=== PATIENT | female | born 1950 | race Caucasian/White ===

== ENCOUNTER 2016-07-06 22:58 | Inpatient (IN) | payer MEDICARE, BC ==
[2016-07-06] MEDS ORDERED: ASPIRIN 81 MG TABLET, CHEWABLE PO ONE (23:07)
--- NOTE | 2016-07-06 23:37 | EKG REPORT ---
SEVERITY:- ABNORMAL ECG - ATRIAL FIBRILLATION, V-RATE 71-[address] DEPRESSION, DIFFUSE LEADS : Confirmed by: Maria Ines Soto 06-Jul-2016 23:36:38
[2016-07-06 23:52] LABS: PARTIAL THROMBOPLASTIN TIME 34.8 SEC (23.5-35.8); PROTHROMBIN TIME 13.6 SEC (11.4-15.4)
[2016-07-06 23:54] LABS: ABSOLUTE EOSINOPHILS # (AUTO) 0.1 10^3/uL (0.0-0.6); ABSOLUTE MONOCYTES (AUTO) 0.6 10^3/uL (0.1-1.4); ABSOLUTE NEUT (AUTO) 4.3 10^3/uL (1.7-8.2); BASOPHILS % (AUTO) 0.7 % (0-2); HEMATOCRIT 42.7 % (36.0-47.0); HEMOGLOBIN 14.2 g/dL (12.0-15.5); HGB HCT DIFFERENCE -0.1; LYMPHOCYTES % (AUTO) 28.5 % (13-45); MEAN CORPUSCULAR HEMOGLOBIN 28.9 pg (27.0-33.4); MEAN CORPUSCULAR HGB CONC 33.1 g/dL (32.0-36.0); MEAN CORPUSCULAR VOLUME 87 fl (80-97); MONOCYTES % (AUTO) 8.3 % (3-13); SEGMENTED NEUTROPHILS % (AUTO) 61.5 % (42-78); WHITE BLOOD COUNT 6.9 10^3/uL (4.0-10.5)
[2016-07-07 00:03] LABS: ALANINE AMINOTRANSFERASE 26 U/L (9-52); ALBUMIN 4.8 g/dL (3.5-5.0); ALKALINE PHOSPHATASE 76 U/L (38-126); ANION GAP 12 (5-19); ASPARTATE AMINO TRANSFERASE 48 U/L (14-36); BILIRUBIN,TOTAL 0.6 mg/dL (0.2-1.3); BLOOD UREA NITROGEN 20 mg/dL (7-20); CALCIUM 10.2 mg/dL (8.4-10.2); CARBON DIOXIDE 28 mmol/L (22-30); CHLORIDE 106 mmol/L (98-107); CREATINE KINASE 178 U/L (30-135); CREATININE RESULT 0.98 mg/dL (0.52-1.25); GLUCOSE 152 mg/dL (75-110); POTASSIUM 3.7 mmol/L (3.6-5.0); TOTAL PROTEIN 7.9 g/dL (6.3-8.2)
[2016-07-07 00:15] LABS: CREATINE KINASE MB 2.15 ng/mL (<4.55)
[2016-07-07 00:16] LABS: TROPONIN I < 0.012 ng/mL
[2016-07-07] MEDS ORDERED: NORMAL SALINE 1000 ML 500 ML IV ONE ×2 (00:30→01:21)
--- NOTE | 2016-07-07 00:33 | ER Document Report ---
ED Cardiac - General Chief Complaint: Palpitations Stated Complaint: FAST HEART RATE Notes: Patient is 66-year-old female that comes emergency department with chief complaint of a sensation of a rapid irregular heartbeat and also of pressure in the center of her chest, this started just before she went to bed several hours before coming to the emergency department. She denies shortness of breath, cough, fever, abdominal pain. She states she was told she had an irregular heartbeat once before but this was resolved and she has never been treated for this. She denies any cardiac history including [place] with stents, she is not on a blood thinner, past medical history of hypothyroidism, GERD, asthma. TRAVEL OUTSIDE OF THE [place] IN LAST 30 DAYS: No - Related Data Allergies/Adverse Reactions: No Known Allergies Allergy (Unverified 07/06/16 23:04) Past Medical History - General Information source: Patient - Social History Smoking Status: Never Smoker Frequency of alcohol use: None Drug Abuse: None Lives with: Family Family History: Reviewed & Not Pertinent Patient has suicidal ideation: No Patient has homicidal ideation: No Pulmonary Medical History: Reports: Hx Asthma Endocrine Medical History: Reports: Hx Hypothyroidism Renal/ Medical History: Denies: Hx Peritoneal Dialysis GI Medical History: Reports: Hx Gastroesophageal Reflux Disease - Immunizations Hx Diphtheria, Pertussis, Tetanus Vaccination: Yes Review of Systems - Review of Systems Constitutional: No symptoms reported EENT: No symptoms reported Cardiovascular: See HPI Respiratory: No symptoms reported Gastrointestinal: No symptoms reported Genitourinary: No symptoms reported Female Genitourinary: No symptoms reported Musculoskeletal: No symptoms reported Skin: No symptoms reported Hematologic/Lymphatic: No symptoms reported Neurological/Psychological: No symptoms reported Physical Exam - Vital signs Vitals: Temp Pulse Resp BP Pulse Ox 98.0 F 124 H 16 133/98 H 94 07/06/16 23:04 07/06/16 23:04 07/06/16 23:04 07/06/16 23:04 07/06/16 23:04 Interpretation: Normal - General General appearance: Appears well In distress: None - HEENT Head: Normocephalic, Atraumatic Eyes: Normal Pupils: PERRL - Respiratory Respiratory status: No respiratory distress Chest status: Nontender Breath sounds: Normal. No: Decreased air movement, Wheezing Chest palpation: Normal - Cardiovascular Rhythm: Irregularly irregular Heart sounds: Normal auscultation Murmur: No - Abdominal Inspection: Normal Distension: No distension Bowel sounds: Normal Tenderness: Nontender. No: Tender, Guarding Organomegaly: No organomegaly - Back Back: Normal. No: Tender - Extremities General upper extremity: Normal inspection, Nontender, Normal strength, Normal temperature General lower extremity: Normal inspection, Nontender, Normal strength, Normal temperature - Neurological Neuro grossly intact: Yes Cognition: Normal Orientation: AAOx4 Rufina Coma Scale Eye Opening: Spontaneous Lang[place]ne Coma Scale Verbal: Oriented Rufina Coma Scale Motor: Obeys Commands Langhorne Coma Scale Total: 15 Speech: Normal Motor strength normal: LUE, RUE, LLE, RLE Sensory: Normal - Psychological Associated symptoms: Normal affect, Normal mood - Skin Skin Temperature: Warm Skin Moisture: Dry Skin Color: Normal Course - Re-evaluation Re-evalutation: On my initial evaluation patient noted to be in atrial fibrillation, however there is not rapid ventricular response at this time, heart rate in the upper 90s and 100s. Patient does not have a history of chronic atrial fibrillation, she has been in this presumably for the past few hours based on her reported symptoms. She is complaining of some chest pressure. Patient is well appearing and is not in distress. Patient given IV fluid bolus, nitroglycerin, after IV fluid bolus atrial fibrillation resolved, patient has resumed a normal sinus rhythm. Patient reporting she is feeling better, on reevaluation again patient reports complete resolution of all symptoms. Still resting comfortably. EKG showing initial atrial fibrillation with RVR at rate of 124. Cardiac enzymes negative, will trend. TSH unremarkable, chemistry and CBC unremarkable, chest x-ray unremarkable. Discussed with Dr. Ashby, does not recommend additional anticoagulation other than aspirin because of short duration and current sinus rhythm. Patient also reports she has had a defibrillation once before. Recommends admission to the hospital. Spoke with hospitalist briefly, he will call back. Mild hypotension, removed nitroglycerin. Still in sinus rhythm, no current complaints. 07/07/[address] Kiran, internal medicine, patient will be admitted to telemetry observation. - Vital Signs Vital signs: Temp Pulse Resp BP Pulse Ox 98.0 F 124 H 14 110/56 L 97 07/06/16 23:04 07/06/16 23:04 07/07/16 06:01 07/07/16 06:00 07/07/16 06:01 - Laboratory Result Diagrams: 07/06/16 23:25 07/06/16 23:25 Laboratory results interpreted by me: 07/06/16 23:25 Sodium 146.0 H Est GFR (Non-Af Amer) 56 L Glucose 152 H AST 48 H Creatine Kinase 178 H Discharge - Discharge Clinical Impression: Paroxysmal atrial fibrillation Chest pain Qualifiers: Chest pain type: unspecified Qualified Code(s): R07.9 - Chest pain, unspecified Condition: Stable Disposition: ADMITTED OBSERVATION Unit Admitted: Telemetry
[2016-07-07] MEDS ORDERED: NITROGLYCERIN 5 MG (0.2 MG/HR) PATCH.TD24 TD ONE (02:36)
--- NOTE | 2016-07-07 08:34 | PDOC H&P ---
History of Present Illness Admission Date/PCP: 07/07/16 06:56 Dr Carmen Palacios, [place] Patient complains of: Chest pain and palpitations History of Present Illness: NIKKI BASS is a 66 year old female comes emergency department with chief complaint of a sensation of a rapid irregular heartbeat and also of pressure in the center of her chest, this started just before she went to bed several hours before coming to the emergency department. She denies shortness of breath, cough, fever, abdominal pain. She states she was told she had an irregular heartbeat once before but this was resolved and she has never been treated for this. She denies any cardiac history including [place] with stents, she is not on a blood thinner, past medical history of hypothyroidism, GERD, asthma. Patient woke up a at 9:30 PM last night with chest pain about 5/10 and palpitations Patient states that she previously had felt palpitations when she had was exposed to a chemical: Damprid 2 years ago On arrival in the ED patient was in paroxysmal atrial fibrillation at rate of 140 It resolved on its own without medications, and patient is now in a normal sinus rhythm The chest pain has persisted it is now 3/10 mild precordial without radiations An EKG was performed it was normal 2 troponins were less than 0.012 Patient was subsequently admitted under hospitalist service for further evaluation and care Past Medical History Cardiac Medical History: Reports: Hypertension, Other - Last stress test was 10 years ago and was normal Pulmonary Medical History: Reports: Asthma Endocrine Medical History: Reports: Hypothyroidism GI Medical History: Reports: Gastroesophageal Reflux Disease Infectious Medical History: Reports: Other - Bleeding after delivery and tonsillectomy Past Surgical History Past Surgical History: Reports: Hysterectomy, Tonsillectomy, Tubal Ligation, Other - Cataract surgery Tonsillectomy Bladder repair Skin cancers removed Social History Lives with: Family Smoking Status: Never Smoker Frequency of Alcohol Use: None Hx Recreational Drug Use: No - Advance Directive Resuscitation Status: Full Code Surrogate healthcare decision maker:: Her son Vanesa Family History Parental Family History Reviewed: Yes - Diabetes coronary artery disease hypertension Children Family History Reviewed: Yes Sibling(s) Family History Reviewed.: Yes Medication/Allergy Home Medications: Famotidine [Pepcid 40 mg Tablet] 40 mg PO QHS 07/07/16 Fexofenadine HCl [Nano Allergy] 60 mg PO BID 07/07/16 Fluticasone/Salmeterol [Advair 250-50 Diskus 28 dose] 1 inh IH Q12 07/07/16 Levothyroxine Sodium [Synthroid 0.025 mg Tablet] 0.025 mcg PO QAM 07/07/16 Lisinopril 5 mg PO QHS 07/07/16 Montelukast Sodium [Singulair 10 mg Tablet] 10 mg PO QHS 07/07/16 Pantoprazole Sodium 40 mg PO QAM 07/07/16 Ranitidine HCl 75 mg PO QHS 07/07/16 Vit A/Vit C/Vit E/Zinc/Copper [Icaps Areds Softgel] 1 each PO QHS 07/07/16 Allergies/Adverse Reactions: No Known Allergies Allergy (Unverified 07/06/16 23:04) Review of Systems Constitutional: ABSENT: chills, fever(s), headache(s), weight gain, weight loss Eyes: ABSENT: visual disturbances Ears: ABSENT: hearing changes Cardiovascular: PRESENT: as per HPI, chest pain, palpitations. ABSENT: dyspnea on exertion, edema, orthropnea Respiratory: ABSENT: cough, hemoptysis Gastrointestinal: ABSENT: abdominal pain, constipation, diarrhea, hematemesis, hematochezia, nausea, vomiting Genitourinary: ABSENT: dysuria, hematuria Musculoskeletal: ABSENT: joint swelling Integumentary: ABSENT: rash, wounds Neurological: ABSENT: abnormal gait, abnormal speech, confusion, dizziness, focal weakness, syncope Psychiatric: ABSENT: anxiety, depression, homidical ideation, suicidal ideation Endocrine: ABSENT: cold intolerance, heat intolerance, polydipsia, polyuria Hematologic/Lymphatic: ABSENT: easy bleeding, easy bruising Physical Exam Vital Signs: Temp Pulse Resp BP Pulse Ox 98.0 F 124 H 17 109/65 97 07/06/16 23:04 07/06/16 23:04 07/07/16 07:01 07/07/16 07:00 07/07/16 07:01 General appearance: PRESENT: no acute distress, well-developed, well-nourished Head exam: PRESENT: atraumatic, normocephalic Eye exam: PRESENT: conjunctiva pink, EOMI, PERRLA. ABSENT: scleral icterus Ear exam: PRESENT: normal external ear exam Mouth exam: PRESENT: moist, tongue midline Neck exam: ABSENT: carotid bruit, JVD, lymphadenopathy, thyromegaly Respiratory exam: PRESENT: clear to auscultation antonio. ABSENT: rales, rhonchi, wheezes Cardiovascular exam: PRESENT: RRR. ABSENT: diastolic murmur, rubs, systolic murmur Pulses: PRESENT: normal dorsalis pedis pul Vascular exam: PRESENT: normal capillary refill GI/Abdominal exam: PRESENT: normal bowel sounds, soft. ABSENT: distended, guarding, mass, organolmegaly, rebound, tenderness Rectal exam: PRESENT: deferred Extremities exam: PRESENT: full ROM. ABSENT: calf tenderness, clubbing, pedal edema Neurological exam: PRESENT: alert, awake, oriented to person, oriented to place , oriented to time, oriented to situation, CN II-XII grossly intact. ABSENT: motor sensory deficit Psychiatric exam: PRESENT: appropriate affect, normal mood. ABSENT: homicidal ideation, suicidal ideation Skin exam: PRESENT: dry, intact, warm. ABSENT: cyanosis, rash Results Laboratory Results: 07/06/16 23:25 07/06/16 23:25 MCV 87 fl (80-97) 07/06/16 23:25 MCH 28.9 pg (27.0-33.4) 07/06/16 23:25 MCHC 33.1 g/dL (32.0-36.0) 07/06/16 23:25 RDW 13.0 % (11.5-14.0) 07/06/16 23:25 Seg Neutrophils % 61.5 % (42-78) 07/06/16 23:25 Lymphocytes % 28.5 % (13-45) 07/06/16 23:25 Monocytes % 8.3 % (3-13) 07/06/16 23:25 Eosinophils % 1.0 % (0-6) 07/06/16 23:25 Basophils % 0.7 % (0-2) 07/06/16 23:25 Absolute Neutrophils 4.3 10^3/uL (1.7-8.2) 07/06/16 23:25 Absolute Lymphocytes 2.0 10^3/uL (0.5-4.7) 07/06/16 23:25 Absolute Monocytes 0.6 10^3/uL (0.1-1.4) 07/06/16 23:25 Absolute Eosinophils 0.1 10^3/uL (0.0-0.6) 07/06/16 23:25 Absolute Basophils 0.0 10^3/uL (0.0-0.2) 07/06/16 23:25 Chloride 106 mmol/L (98-107) 07/06/16 23:25 Carbon Dioxide 28 mmol/L (22-30) 07/06/16 23:25 Anion Gap 12 (5-19) 07/06/16 23:25 Est GFR ( Amer) > 60 (>60) 07/06/16 23:25 Est GFR (Non-Af Amer) 56 (>60) L 07/06/16 23:25 Glucose 152 mg/dL (75-110) H 07/06/16 23:25 Calcium 10.2 mg/dL (8.4-10.2) 07/06/16 23:25 Magnesium 2.0 mg/dL (1.6-2.3) 07/06/16 23:25 Total Bilirubin 0.6 mg/dL (0.2-1.3) 07/06/16 23:25 AST 48 U/L (14-36) H 07/06/16 23:25 ALT 26 U/L (9-52) 07/06/16 23:25 Alkaline Phosphatase 76 U/L (38-126) 07/06/16 23:25 Total Protein 7.9 g/dL (6.3-8.2) 07/06/16 23:25 Albumin 4.8 g/dL (3.5-5.0) 07/06/16 23:25 TSH 4.08 uIU/mL (0.47-4.68) 07/06/16 23:25 07/06/16 07/06/16 07/07/16 23:25 23:25 04:00 Creatine Kinase 178 H CK-MB (CK-2) 2.15 Troponin I < 0.012 < 0.012 NT-Pro-B Natriuret Pep 295 EKG Comments: ATRIAL FIBRILLATION, V-RATE 71-127 [SD1DI] . BORDERLINE ST DEPRESSION, DIFFUSE LEADS Impressions: Chest X-Ray 07/06/16 23:12 IMPRESSION: NO SIGNIFICANT RADIOGRAPHIC FINDING IN THE CHEST. Assessment & Plan - Diagnosis (1) Chest pain Qualifiers: Chest pain type: unspecified Qualified Code(s): R07.9 - Chest pain, unspecified Is this a current diagnosis for this admission?: YesPlan: The patient may have underlying coronary artery disease Pulmonary embolism should be ruled out So far patient's troponins are negative We will get another set of troponin at 10 AM Repeat EKG A CTA of the chest will be performed to rule out pulmonary embolism Cardiolite stress test scheduled in a.m. if patient rules out Patient we will be treated with aspirin, Lipitor Small doses of metoprolol also will be ordered (2) Paroxysmal atrial fibrillation Is this a current diagnosis for this admission?: YesPlan: CTA of the chest, stress test, echocardiogram to be performed Vasc chads score is 3 Patient was initially reluctant to be on Lovenox, but changed her mind (3) Hypothyroidism Qualifiers: Hypothyroidism type: unspecified Qualified Code(s): E03.9 - Hypothyroidism, unspecified Is this a current diagnosis for this admission?: YesPlan: Continue home medications TSH in a.m. (4) History of asthma Is this a current diagnosis for this admission?: YesPlan: Continue home medications - Time Time Spent with patient: Patient will be admitted to [facility] as inpatient Time Spent: 50 to 70 Minutes - Inpatient Certification Based on my medical assessment, after consideration of the patient's comorbidities, presenting symptoms, or acuity I expect that the services needed warrant INPATIENT care.: Yes I certify that my determination is in accordance with my understanding of Medicare's requirements for reasonable and necessary INPATIENT services [42 CFR 412.3e].: Yes Medical Necessity: Need Close Monitoring Due to Risk of Patient Decompensation, Need For Continuous Telemetry Monitoring
[2016-07-07] MEDS: ASPIRIN 81 MG TABLET, ENT COATED PO SCH (09:42)
[2016-07-07] MEDS: NORMAL SALINE 1000 ML 1,000 ML IV PRN ×2 (09:43→20:32)
--- NOTE | 2016-07-07 10:39 | Physician Advisory Note ---
Physician Advisor ProgressNote .: Pursuant to the plan for [facility], I have reviewed the medical record for this patient. Physician Advisor Statement: Possible documentation opportunities if attending agrees: 1. "Acute Hypernatremia, likely due to " 2. Medical Necessity - see below. As always, if concerned about any unstable VS or abnormal labs, please comment on them & note what doing about them, & please document each day the potential clinical problems you are concerned could occur if pt not kept in hospital for tx at this time. Status: Approp to bring Afib /CP pt in for Outpt Obs stay initially. She has Medicare and has so far required 1 MN of hospital care. If she is unable to safely be d/c'd later today due to clinical factors (not just waiting for stress test or such "delay of care"), please document reasons/ concerns that make a 2nd MN of inpatient hospital tx/monitoring medically reasonable & necessary to protect pt's health, safety, & medical condition, & may then consider change to Inpt status. Thanks for your help with documentation accuracy/specificity improvement! Dolores Vega MD [facility] Physician Advisor, Fellow of Hospital Medicine
[2016-07-07] MEDS ORDERED: ENOXAPARIN SODIUM INJ 100 MG/1 ML DISP.SYRIN SUBCUT ONE (12:00)
[2016-07-07] MEDS ORDERED: LANSOPRAZOLE 30 MG TAB.RAP.DR PO ONE (13:00)
[2016-07-07] MEDS ORDERED: SUCRALFATE SUSP 1 GM/10 ML UDCUP PO ONE (13:00)
[2016-07-07] MEDS: SUCRALFATE SUSP 1 GM/10 ML UDCUP PO SCH ×2 (15:18→21:07)
[2016-07-07] MEDS ORDERED: AMINOPHYLLINE INJ/PF 250 MG/10 ML SDV IV ONE (15:23)
[2016-07-07] MEDS ORDERED: REGADENOSON INJ 0.4 MG/5 ML DISP.SYRIN IV ONE (15:23)
--- NOTE | 2016-07-07 17:57 | PDOC CONSULTATION ---
Consultation Consult Date: 07/07/16 Attending physician:: ROSANA MIRANDA Consult reason:: Atrial fibrillation History of Present Illness Admission Date/PCP: 07/07/16 08:08 Patient complains of: Palpitations History of Present Illness: NIKKI BASS is a 66 year old female admitted through the emergency department with chief complaint of a sensation of a rapid irregular heartbeat and also of pressure in the center of her chest, this started just before she went to bed several hours before coming to the emergency department. She denies shortness of breath, cough, fever, abdominal pain. She states she was told she had an irregular heartbeat once before but this was resolved and she has never been treated for this. She denies any cardiac history including [place] with stents, she is not on a blood thinner, past medical history of hypothyroidism, GERD, asthma. Patient woke up a at 9:30 PM last night with chest pain about 5/10 and palpitations Patient states that she previously had felt palpitations when she had was exposed to a chemical: [place] 2 years ago On arrival in the ED patient was in paroxysmal atrial fibrillation at rate of 140 It resolved on its own without medications, and patient is now in a normal sinus rhythm The chest pain has persisted it is now 3/10 mild precordial without radiations An EKG was performed it was normal 2 troponins were less than 0.012 Patient denied any prior history of myocardial infarction, angina, congestive heart failure. Patient denied any prior history of strokes or mini strokes. Patient claims to be physically active. Patient does describe history of hemorrhage after tonsillectomy and also after a childbirth. Past Medical History Cardiac Medical History: Reports: Hypertension, Other - Last stress test was 10 years ago and was normal Pulmonary Medical History: Reports: Asthma Endocrine Medical History: Reports: Hypothyroidism GI Medical History: Reports: Gastroesophageal Reflux Disease Psychiatric Medical History: Denies: Depression Infectious Medical History: Reports: Other - Bleeding after delivery and tonsillectomy Past Surgical History Past Surgical History: Reports: Hysterectomy, Tonsillectomy, Tubal Ligation, Other - Cataract surgery Tonsillectomy Bladder repair Skin cancers removed Social History Information Source: Patient Lives with: Family Smoking Status: Never Smoker Frequency of Alcohol Use: None Hx Recreational Drug Use: No Hx Prescription Drug Abuse: No - Advance Directive Resuscitation Status: Full Code Surrogate healthcare decision maker:: Patient's Family History Family History: Reviewed & Not Pertinent Parental Family History Reviewed: Yes Children Family History Reviewed: Yes Sibling(s) Family History Reviewed.: Yes - Negative for premature coronary artery disease or sudden cardiac in the family amongst first degree relatives. Medication/Allergy Home Medications: Famotidine [Pepcid 40 mg Tablet] 40 mg PO QHS 07/07/16 Fexofenadine HCl [Nano Allergy] 60 mg PO BID 07/07/16 Fluticasone/Salmeterol [Advair 250-50 Diskus 28 dose] 1 inh IH Q12 07/07/16 Levothyroxine Sodium [Synthroid 0.025 mg Tablet] 0.025 mcg PO QAM 07/07/16 Lisinopril 5 mg PO QHS 07/07/16 Montelukast Sodium [Singulair 10 mg Tablet] 10 mg PO QHS 07/07/16 Pantoprazole Sodium 40 mg PO QAM 07/07/16 Ranitidine HCl 75 mg PO QHS 07/07/16 Vit A/Vit C/Vit E/Zinc/Copper [Icaps Areds Softgel] 1 each PO QHS 07/07/16 Allergies/Adverse Reactions: No Known Allergies Allergy (Unverified 07/06/16 23:04) Review of Systems Review of Systems: Please see history of present illness and past medical history as wall. Constitutional: No fever or chills reported. Head : No recent chronic headaches, recent head injury. Eyes: No recent eye pain, diplopia, redness, discharge, acute visual changes. Ears: No recent chronic ear pain, acute hearing loss, ear discharge. Oral cavity: No recent ulcerations, bleeding, oral cavity discomfort. Neck: No recent acute neck pain reported. Hematologic: No recent easy bruising or bleeding or hematologic malignancy reported. History of hemorrhage post surgery. Lymphatic: No recent lymphatic malignancy, chronic lymphadenopathy reported yet Cardiovascular system review: See history of present illness. Respiratory system review: No recent chronic cough, hemoptysis, blood clots in the lungs reported. Mild Shortness of breath on exertion Gastrointestinal system review: Negative for any recent acute or chronic abdominal pain, hematemesis, melena, recent change in bowel habits. Genitourinary system review: No recent acute or chronic hematuria, flank pain, UTI etc. reported. Skin system review: Negative for any recent abnormal bruising, no rash, no pruritus reported. Neurologic: No prior history of strokes, mini strokes, seizure disorder. Psychologic: No history of major psychosis or major depression reported. Musculoskeletal: Minor aches and pains reported. No acute joint swelling reported. Endocrine: No recent polyuria, polydipsia, recent heat or cold intolerance. Physical Exam Vital Signs: Temp Pulse Resp BP Pulse Ox 98.5 F 71 16 126/66 H 99 07/07/16 15:33 07/07/16 15:33 07/07/16 15:33 07/07/16 15:33 07/07/16 15:33 Intake & Output 07/06/16 07/07/16 07/08/16 06:59 06:59 06:59 Intake Total 514 Output Total 0 Balance 514 Exam: GENERAL: well-nourished and in no acute distress. Alert and oriented x3 HEAD: Atraumatic, normocephalic. EYES: Pupils equal round and reactive to light, extraocular movements intact, sclera anicteric, conjunctiva are normal. ENT: TMs normal, nares patent, oropharynx clear without exudates. Moist mucous membranes. No oral ulcerations or bleeding gums noted NECK: supple without lymphadenopathy. Trachea is central. No cervical or axillary lymphadenopathy noted. Carotids are 2+, JVD WNL LUNGS: Respiration seems nonlabored, no significant accessory muscle action noted. Breath sounds clear to auscultation bilaterally and equal noted. No wheezes rales or rhonchi noted. No significant dullness noted on percussion. CHEST: Palpation of the chest wall shows no significant chest wall tenderness. No other significant abnormalities noted. HEART: [place] [employer] AMMONIA, No PSH, 1/6 HERNAN aortic area, 1/6 ewing systolic murmur mitral area, no rubs, no gallops. ABDOMEN: Soft, no significant tenderness appreciated, normoactive bowel sounds. No guarding, no rebound. No rigidity noted . No masses appreciated. EXTREMITIES: Pedal pulses are 1-2+, no calf tenderness noted. No clubbing or cyanosis.trace to 1+ pedal edema noted NEUROLOGICAL: Focused neurological exam showed no significant neurologic deficit. Normal speech, no focal weakness appreciated. PSYCH: Normal mood, normal affect. Judgment and insight within normal limits. SKIN: No significant ecchymosis, rash, ulcerations or signs of pruritus noted. MUSCULOSKELETAL EXAM: No significant joint swelling noted. Results Laboratory Results: 07/07/16 11:02 Troponin I < 0.012 EKG Comments: Atrial fibrillation and minor nonspecific ST-T wave changes Impressions: Chest X-Ray 07/06/16 23:12 IMPRESSION: NO SIGNIFICANT RADIOGRAPHIC FINDING IN THE CHEST. Chest/Abdomen CTA 07/07/16 08:04 IMPRESSION: NO PULMONARY EMBOLI. NO THORACIC AORTIC DISSECTION. NO ACUTE INFILTRATES. NO PLEURAL EFFUSIONS. NO PNEUMOTHORAX. Assessment & Plan - Diagnosis (1) Paroxysmal atrial fibrillation Is this a current diagnosis for this admission?: Yes (2) Chest pain Qualifiers: Chest pain type: unspecified Qualified Code(s): R07.9 - Chest pain, unspecified Is this a current diagnosis for this admission?: Yes (3) Hypertension Qualifiers: Hypertension type: essential hypertension Qualified Code(s): I10 - Essential (primary) hypertension Is this a current diagnosis for this admission?: Yes (4) History of asthma Is this a current diagnosis for this admission?: Yes (5) Hypothyroidism Qualifiers: Hypothyroidism type: unspecified Qualified Code(s): E03.9 - Hypothyroidism, unspecified Is this a current diagnosis for this admission?: Yes - Notes Notes: Atrial fibrillation, paroxysmal: Patient has paroxysmal atrial fibrillation. Based on [id number] score chronic anticoagulation is indicated this was explained to the patient. Patient is trying to decide. [id number] is 2. Discussed a small increased risk of bleeding but on the balance benefits far exceeds the risk. Patient felt to be a satisfactory candidate for chronic anticoagulation. Patient seems to be not tolerating atrial fibrillation. Will therefore placed patient on Multaq 400 by mouth twice a day. This can be followed as an outpatient. Chest pain: Patient has some typical and atypical features of chest pain. Cardiac enzymes so far has been negative. Electrocardiogram did show nonspecific ST segment changes. In this regard risk benefits of nuclear stress test and other alternative processes were discussed in detail. The patient prefers to undergo nuclear stress test. Blood pressure goal in this patient is 140/90 or less. This was discussed with the patient. Currently blood pressure under reasonable control. Better medication for this patient are ODETTE inhibitor/ARB/beta cynthia etc. discussed side effects of uncontrolled hypertension and also severe hypotension. Hypothyroidism: Continue Synthroid replacement therapy. History of asthma: Currently stable. - Time Time Spent: 30 to 50 Minutes - CODE STATUS was discussed, patient remains full code. Surrogate decision-maker patient's . Multiple medical problems were addressed.More than 50% of the time spent coordinating care, discussing management plans with involved caregivers. Management plans discussed with involved personnels. Medical decision making was of moderate complexity. Medications reviewed and adjusted accordingly: Yes
[2016-07-07] MEDS: ENOXAPARIN SODIUM INJ 100 MG/1 ML DISP.SYRIN SUBCUT SCH (21:07)
[2016-07-07] MEDS: LANSOPRAZOLE 30 MG TAB.RAP.DR PO SCH (21:07)
[2016-07-07] MEDS: DRONEDARONE HYDROCHLORIDE 400 MG TABLET PO SCH (21:08)
[2016-07-07] MEDS ORDERED: ATORVASTATIN CALCIUM 40 MG TABLET PO SCH (22:00)
[2016-07-08] MEDS: ACETAMINOPHEN 325 MG TABLET PO PRN ×2 (03:47→09:53)
[2016-07-08 04:56] LABS: HEMATOCRIT 39.2 % (36.0-47.0); HEMOGLOBIN 12.9 g/dL (12.0-15.5); HGB HCT DIFFERENCE -0.5; MEAN CORPUSCULAR HEMOGLOBIN 28.8 pg (27.0-33.4); MEAN CORPUSCULAR HGB CONC 32.9 g/dL (32.0-36.0); MEAN CORPUSCULAR VOLUME 88 fl (80-97); RED BLOOD COUNT 4.47 10^6/uL (3.72-5.28); RED CELL DISTRIBUTION WIDTH 13.1 % (11.5-14.0)
[2016-07-08 05:17] LABS: CHOLESTEROL 188.22 mg/dL (0-200); Direct HDL 75 mg/dL (>40); TRIGLYCERIDES 92 mg/dL (<150)
[2016-07-08 05:28] LABS: DIRECT LDL 72 mg/dL (<100)
[2016-07-08 05:49] LABS: THYROID STIMULATING HORMONE 3.25 uIU/mL (0.47-4.68)
[2016-07-08] MEDS ORDERED: LANSOPRAZOLE 30 MG TAB.RAP.DR PO SCH (06:00)
[2016-07-08] MEDS: NORMAL SALINE 1000 ML 1,000 ML IV PRN (06:30)
[2016-07-08 06:55] LABS: APPEARANCE,URINE CLEAR; BILIRUBIN,URINE NEGATIVE (NEGATIVE); GLUCOSE, URINE NEGATIVE (NEGATIVE); KETONES,URINE TRACE mg/dL (NEGATIVE); LEUKOCYTE ESTERASE,URINE NEGATIVE (NEGATIVE); NITRITE,URINE NEGATIVE (NEGATIVE); PROTEIN,URINE NEGATIVE (NEGATIVE); URINE SPECIFIC GRAVITY 1.025; UROBILINOGEN,URINE NEGATIVE mg/dL (<2.0)
[2016-07-08] MEDS: SUCRALFATE SUSP 1 GM/10 ML UDCUP PO SCH ×3 (07:19→15:11)
--- NOTE | 2016-07-08 07:57 | EKG REPORT ---
SEVERITY:- NORMAL ECG - SINUS RHYTHM : Confirmed by: Rosemary Seaman MD 08-Jul-2016 07:56:59
[2016-07-08] MEDS: ENOXAPARIN SODIUM INJ 100 MG/1 ML DISP.SYRIN SUBCUT SCH (09:46)
[2016-07-08] MEDS: LANSOPRAZOLE 30 MG TAB.RAP.DR PO SCH (09:46)
[2016-07-08] MEDS: DRONEDARONE HYDROCHLORIDE 400 MG TABLET PO SCH (09:46)
[2016-07-08] MEDS: ASPIRIN 81 MG TABLET, ENT COATED PO SCH (09:46)
--- NOTE | 2016-07-08 15:55 | XCELERA REPORT ---
[address] [address] Transthoracic Echocardiogram Report Name: NIKKI BASS Age: 66 yrs Gender: Female : 1950 Patient Status: Inpatient Patient Location: 3W\S\320\S\A Study Date: 07/08/2016 02:17 PM Height: 67 in Weight: 227 lb BSA: 2.1 m2 Procedure: A complete two-dimensional transthoracic echocardiogram was performed (2D, M-mode, spectral and color flow Doppler). The study was technically adequate with some images being suboptimal in quality. Reason For Study: PAF Ordering Physician: JAMISON MAK Performed By: Carole Pederson Interpretation Summary The left ventricular ejection fraction is normal. LV diastolic function could not be adequately assessed. There is borderline concentric left ventricular hypertrophy. The left ventricle is grossly normal size. Wall motion cannot be accurately commented on, but no definite regional wall motion abnormalities noted. The right ventricle is borderline dilated. The right ventricular systolic function is normal. The left atrial size is normal. The right atrium is normal. There is a mild amount of mitral regurgitation There is no mitral valve stenosis. No aortic regurgitation is present. There is no aortic valve stenosis Right ventricular systolic pressure is at the upper limits of normal There is a mild amount of tricuspid regurgitation There is no pericardial effusion. MMode/2D Measurements \T\ Calculations RVDd: 3.3 cm LVIDd: 5.1 cm FS: 38.9 % Ao root diam: 3.1 cm IVSd: 1.0 cm LVIDs: 3.1 cm EDV(Teich): 123.1 ml LVPWd: 1.0 cm ESV(Teich): 38.2 ml Ao root area: 7.3 cm2 EF(Teich): 69.0 % LA dimension: 3.5 cm Doppler Measurements \T\ Calculations MV E max chichi: MV P1/2t max chichi: Ao V2 max: LV V1 max P.1 cm/sec 67.1 cm/sec 103.8 cm/sec 4.0 mmHg MV A max chichi: MV P1/2t: 71.2 msec Ao max PG: LV V1 max: 54.3 cm/sec 4.3 mmHg 100.2 cm/sec MV E/A: 1.2 MVA(P1/2t): 3.1 cm2 MV dec slope: 276.2 cm/sec2 MV dec time: 0.23 sec PA V2 max: PI end-d chichi: TR max chichi: 65.2 cm/sec 127.0 cm/sec 269.3 cm/sec PA max PG: TR max P.7 mmHg 29.0 mmHg Left Ventricle The left ventricle is grossly normal size. There is borderline concentric left ventricular hypertrophy. The left ventricular ejection fraction is normal. LV diastolic function could not be adequately assessed. Wall motion cannot be accurately commented on, but no definite regional wall motion abnormalities noted. Right Ventricle The right ventricle is borderline dilated. There is normal right ventricular wall thickness. The right ventricular systolic function is normal. Atria The right atrium is normal. The left atrial size is normal. Interarterial septum not well visualized and not well dopplered. Cannot comment on ASD/PFO presence. Mitral Valve The mitral valve leaflets are sclerotic, but show no functional abnormalities. There is no mitral valve stenosis. There is a mild amount of mitral regurgitation. Aortic Valve The aortic valve is grossly normal. There is no aortic valve stenosis. No aortic regurgitation is present. Tricuspid Valve The tricuspid valve is not well visualized, but is grossly normal. There is no tricuspid stenosis. There is a mild amount of tricuspid regurgitation. Right ventricular systolic pressure is at the upper limits of normal. Pulmonic Valve The pulmonic valve is not well visualized. Great Vessels The aortic root is not well visualized but is probably normal size. The inferior vena cava appeared normal and decreased > 50% with respiration (RAP 5-10 mmHg). Effusions There is no pericardial effusion. : JAMISON MAK > Maria Ines Soto
[2016-07-08 16:18] VITALS: BP 111/67
--- NOTE | 2016-07-08 19:40 | PDOC PROGRESS REPORT ---
Subjective Progress Note for:: 07/08/16 Subjective:: Patient seems to be doing better with gradual improvement. Pt is denying any chest arm or neck discomfort. Patient denying any PND, orthopnea. Patient denied any sustained palpitations, dizziness, syncope, near syncope. Patient denying any fever chills. Patient denying any other significant discomfort. Patient is maintaining sinus rhythm. Review of systems: Rest review of systems negative. Medications: Medications have been reviewed. Nuclear stress test procedure was explained to the patient in detail. Risks benefits were discussed and informed consent was obtained. Alternatives were discussed. Patient informed that based on risk factors, physical exam, lab data findings and symptoms there is at least intermediate probability of underlying CAD. Nuclear stress test procedure was therefore scheduled. Physical Exam Vital Signs: Temp Pulse Resp BP Pulse Ox 98.6 F 67 16 111/67 97 07/08/16 16:15 07/08/16 16:15 07/08/16 16:15 07/08/16 16:15 07/08/16 16:15 Intake & Output 07/07/16 07/08/16 07/09/16 06:59 06:59 06:59 Intake Total 2506 Output Total 1100 Balance 1406 Weight 104.3 kg Exam: GENERAL: well-nourished and in no acute distress. Alert and oriented x3 HEAD: Atraumatic, normocephalic. EYES: Pupils equal round and reactive to light, extraocular movements intact, sclera anicteric, conjunctiva are normal. ENT: TMs normal, nares patent, oropharynx clear without exudates. Moist mucous membranes. No oral ulcerations or bleeding gums noted NECK: supple without lymphadenopathy. Trachea is central. No cervical or axillary lymphadenopathy noted. Carotids are 2+, JVD WNL LUNGS: Respiration seems nonlabored, no significant accessory muscle action noted. Breath sounds clear to auscultation bilaterally and equal noted. No wheezes rales or rhonchi noted. No significant dullness noted on percussion. CHEST: Palpation of the chest wall shows no significant chest wall tenderness. No other significant abnormalities noted. 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 ABDOMEN: Soft, no significant tenderness appreciated, normoactive bowel sounds. No guarding, no rebound. No rigidity noted . No masses appreciated. EXTREMITIES: Pedal pulses are 1-2+, no calf tenderness noted. No clubbing or cyanosis.trace to 1+ pedal edema noted NEUROLOGICAL: Focused neurological exam showed no significant neurologic deficit. Normal speech, no focal weakness appreciated. PSYCH: Normal mood, normal affect. Judgment and insight within normal limits. SKIN: No significant ecchymosis, rash, ulcerations or signs of pruritus noted. MUSCULOSKELETAL EXAM: No significant joint swelling noted. Results Laboratory Results: 07/08/16 04:42 07/08/16 07/08/16 07/08/16 04:42 04:42 04:42 WBC 4.0 RBC 4.47 Hgb 12.9 Hct 39.2 MCV 88 MCH 28.8 MCHC 32.9 RDW 13.1 Plt Count 142 L Triglycerides 92 Cholesterol 188.22 LDL Cholesterol Direct 72 VLDL Cholesterol 18.0 HDL Cholesterol 75 TSH 3.25 Free T4 1.74 Urine Color Urine Appearance Urine pH Ur Specific [place] Urine Protein Urine Glucose (UA) Urine Ketones Urine Blood Urine Nitrite Ur Leukocyte Esterase Urine WBC (Auto) Urine RBC (Auto) 07/08/16 06:33 WBC RBC Hgb Hct MCV MCH MCHC RDW Plt Count Triglycerides Cholesterol LDL Cholesterol Direct VLDL Cholesterol HDL Cholesterol TSH Free T4 Urine Color YELLOW Urine Appearance CLEAR Urine pH 6.0 Ur Specific [place] 1.025 Urine Protein NEGATIVE Urine Glucose (UA) NEGATIVE Urine Ketones TRACE H Urine Blood NEGATIVE Urine Nitrite NEGATIVE Ur Leukocyte Esterase NEGATIVE Urine WBC (Auto) 1 Urine RBC (Auto) 1 07/07/16 11:02 Troponin I < 0.012 Impressions: Chest X-Ray 07/06/16 23:12 IMPRESSION: NO SIGNIFICANT RADIOGRAPHIC FINDING IN THE CHEST. Chest/Abdomen CTA 07/07/16 08:04 IMPRESSION: NO PULMONARY EMBOLI. NO THORACIC AORTIC DISSECTION. NO ACUTE INFILTRATES. NO PLEURAL EFFUSIONS. NO PNEUMOTHORAX. Assessment & Plan - Diagnosis (1) Paroxysmal atrial fibrillation Is this a current diagnosis for this admission?: Yes (2) Chest pain Qualifiers: Chest pain type: unspecified Qualified Code(s): R07.9 - Chest pain, unspecified Is this a current diagnosis for this admission?: Yes (3) Hypertension Qualifiers: Hypertension type: essential hypertension Qualified Code(s): I10 - Essential (primary) hypertension Is this a current diagnosis for this admission?: Yes (4) History of asthma Is this a current diagnosis for this admission?: Yes (5) Hypothyroidism Qualifiers: Hypothyroidism type: unspecified Qualified Code(s): E03.9 - Hypothyroidism, unspecified Is this a current diagnosis for this admission?: Yes - Notes Notes: Paroxysmal atrial fibrillation: Patient tolerating Multaq therapy. Patient has agreed to undergo chronic anticoagulation. ELIQUIS chosen. Side effects discussed. Chest pain: Patient claims chest pain is improved. This was evaluated with a nuclear stress test. Nuclear stress test was negative for any significant areas of ischemia or any significant areas of scar. The nuclear stress test is felt to be relatively low risk. Patient informed that occasionally single- vessel disease and balanced ischemia could be missed. Patient advised aggressive risk factor modification and medical therapy. Patient informed that further evaluation may become necessary if symptoms worsens or there is a development of new symptoms indicative of angina or angina equivalent symptom. Hypertension: Reasonably well controlled. Blood pressure goal in this patient is 135/85 or less. This was discussed with the patient. Currently blood pressure under reasonable control. Better medication for this patient are ODETTE inhibitor/ARB/beta cynthia etc. discussed side effects of uncontrolled hypertension and also severe hypotension. Hypothyroidism: Continue replacement therapy. History of asthma: Continue current management plans. Sleep disorder: Discussed that in view of hypertension, paroxysmal atrial fibrillation, obesity, she would benefit from a sleep study. Patient encouraged to schedule this as an outpatient. 2-D echocardiogram results and nuclear stress test results were discussed in detail with the patient. Patient's spouse was also involved in discussion - Time Time with patient: Greater than 35 minutes - Patient was seen multiple times. Total time exceeds 40 minutes. In the morning nuclear stress test procedure, risks benefits, alternatives were discussed. Patient seen during the stress test. Patient also seen after stress test when results were discussed with the patient in detail. Patient's questions were answered. Nuclear stress test results were discussed with the patient. Patient was informed that no definitive evidence of pharmacologic stress-induced ischemia noted. No definite fixed defects were noted. Patient informed that occasionally significant single vessel disease or balanced ischemia could be missed. However based on the current study results, would recommend aggressive risk factor modification and medical therapy. It may also be worthwhile to consider evaluation or empiric management of other causes of chest pain. Should no other cause be found and if persistent in having chest pain, then cardiac catheterization should be considered. Right now, recommendations are for aggressive risk factor modification and medical management.More than 50% of the time spent coordinating care, discussing management plans with involved caregivers. Management plans discussed with involved personnels. Medical decision making was of moderate complexity.CODE STATUS was discussed, patient remains full code. Surrogate decision-maker unchanged. Multiple medical problems were addressed. Medications reviewed and adjusted accordingly: Yes
[2016-07-08 21:07] LABS: FACTOR VIII ACTIVITY 151 % (57-163)
[2016-07-09 07:06] LABS: VON WILLEBRAND FACTOR ACTIVITY 150 % (50-200)
--- NOTE | 2016-07-09 10:02 | DRAGON STRESS TEST REPORT ---
INTRAVENOUS LEXISCAN CARDIOLITE STRESS TEST USING SINGLE PHOTON EMMISION COMPUTERIZED TOMOGRAPHIC. DATE OF PROCEDURE: July 08, 2016 INDICATION : Chest pain and atrial fibrillation, paroxysmal CARDIAC RISK FACTORS: Hypertension RESTING EKG: Sinus rhythm without any baseline ST-T wave changes STRESS EKG: No significant changes noted with LexiScan bolus REASON FOR TERMINATION: Protocol. PROCEDURE REPORT: Baseline heart rate 68 beats per minute with blood pressure of 107/73. Patient had no significant complaints. Heart rate at 2 minutes post bolus 104 with a blood pressure of 125/66. 3 minutes post bolus heart rate 102 with blood pressure of 130/65. No significant EKG changes were noted. Patient had no significant complaints during the procedure or postprocedure. CONCLUSIONS: Normal EKG and hemodynamic response to IV LexiScan. NUCLEAR DATA: At rest the patient was given 14.22 millicuries of technetium 99 sestamibi injected intravenously. As per protocol rest gated SPECT images were obtained. Subsequently the patient was given intravenous LexiScan at a dose of 0.4 mg in 5 mL intravenously, followed by flush with normal saline. Subsequently the stress dose of 43.4 Millicuries of technetium 99 sestamibi was injected intravenously. As per protocol stress gated images were obtained. NUCLEAR INTERPRETATION: Both raw and processed data were used for interpretation. Visual, qualitative, computer-generated quantitative data was used. There was good myocardial uptake of technetium compound. Motion artifact and soft tissue attenuations were noted. Increased visceral uptake was noted. No definitive areas of transient perfusion defect noted. No definitive areas of fixed perfusion defect or scars noted. EKG gated imaging showed LV EF at 54 %, rest and stress gated EF similar visually. T. I D. ratio was 1.18. Lung heart ratio noted to be within normal limits 0.25. No significant extracardiac and abnormal radiotracer activities were noted. RV free wall uptake was noted to be WNL. IMPRESSION: Also refer to comments under nuclear interpretation. Also test results needs to be interpreted in the context of pretest probability. 1. There is no definitive scintigraphic evidence of LexiScan induced myocardial ischemia. 2. There is no definitive scintigraphic evidence of myocardial infarction/scar. 3. EKG gated imaging shows left ejection fraction of approximately 54 %. 4. Clinical correlation requested as occasionally single vessel disease or balanced ischemia could be missed. In approximately 10% of the cases Lexiscan may not cause adequate vasodilatory stress. RECOMMENDATIONS: Aggressive risk factor modification, medical therapy. Clinical correlation with echocardiogram derived ejection fraction. Inability to exercise by itself can lead to increased cardiovascular event risks. Consider cardiology consultation and or follow-up if clinically indicated. I AM AVAILABLE FOR CARDIOLOGY CONSULTATION AND FOLLOWUP IF REQUESTED BY PMD Maria Ines Soto M.D., [facility] Hospitality Team Member oracle programmer analyst, Board certified in cardiovascular diseases, Nuclear cardiology, Echocardiography Cardiac CT and cardiac MRI Ph. [phone] [facility]
--- NOTE | 2016-07-10 14:08 | PDOC DISCHARGE SUMMARY ---
General - Admit/Disc Date/PCP Admission Date/Primary Care Provider: 07/07/16 08:08 Discharge Date: 07/08/16 - Discharge Diagnosis (1) Chest pain Is this a current diagnosis for this admission?: Yes (2) Paroxysmal atrial fibrillation Is this a current diagnosis for this admission?: Yes (3) Hypothyroidism Is this a current diagnosis for this admission?: Yes (4) History of asthma Is this a current diagnosis for this admission?: Yes - Additional Information Resuscitation Status: Full Code Discharge Diet: Cardiac Discharge Activity: Activity As Tolerated, Balance Activity w/Rest, Walk Frequently Home Medications: Famotidine [Pepcid 40 mg Tablet] 40 mg PO QHS 07/07/16 Fexofenadine HCl [Nano Allergy] 60 mg PO BID 07/07/16 Fluticasone/Salmeterol [Advair 250-50 Diskus 28 dose] 1 inh IH Q12 07/07/16 Levothyroxine Sodium [Synthroid 0.025 mg Tablet] 0.025 mcg PO QAM 07/07/16 Lisinopril 5 mg PO QHS 07/07/16 Montelukast Sodium [Singulair 10 mg Tablet] 10 mg PO QHS 07/07/16 Pantoprazole Sodium 40 mg PO QAM 07/07/16 Vit A/Vit C/Vit E/Zinc/Copper [Icaps Areds Softgel] 1 each PO QHS 07/07/16 Apixaban [Eliquis 5 mg Tablet] 5 mg PO BID #60 tablet 07/08/16 Dronedarone Hydrochloride [Multaq 400 mg Tablet] 400 mg PO Q12 #60 tablet History of Present Illness Patient complains of: chest pain , shortness of breath History of Present Illness: NIKKI BASS is a 66 year old female comes emergency department with chief complaint of a sensation of a rapid irregular heartbeat and also of pressure in the center of her chest, this started just before she went to bed several hours before coming to the emergency department. She denies shortness of breath, cough, fever, abdominal pain. She states she was told she had an irregular heartbeat once before but this was resolved and she has never been treated for this. She denies any cardiac history including MD with stents, she is not on a blood thinner, past medical history of hypothyroidism, GERD, asthma. Patient woke up a at 9:30 PM last night with chest pain about 5/10 and palpitations Patient states that she previously had felt palpitations when she had was exposed to a chemical: Damprid 2 years ago On arrival in the ED patient was in paroxysmal atrial fibrillation at rate of 140 It resolved on its own without medications, and patient is now in a normal sinus rhythm The chest pain has persisted it is now 3/10 mild precordial without radiations An EKG was performed it was normal 2 troponins were less than 0.012 Patient was subsequently admitted under hospitalist service for further evaluation and care Hospital Course Hospital Course: 1 paroxysmal atrial fibrillation Resolved in the ED Patient was evaluated by lisa Soto and prescribed Multaq she was found to be a candidate for anticoagulation And was prescribed Eliquis Vascular score was 3 Hypertension was controlled An echocardiogram was performed and showed a normal ejection fraction; a stress test was negative Patient was to follow-up with Dr. Soto in the office Physical Exam Vital Signs: Temp Pulse Resp BP Pulse Ox 98.6 F 67 16 111/67 97 07/08/16 16:15 07/08/16 16:15 07/08/16 16:15 07/08/16 16:15 07/08/16 16:15 Intake & Output 07/09/16 07/10/16 07/11/16 00:59 00:59 00:59 Intake Total 1512 Output Total 1100 Balance 412 Weight 104.3 kg General appearance: PRESENT: no acute distress, well-developed, well-nourished Head exam: PRESENT: atraumatic, normocephalic Eye exam: PRESENT: conjunctiva pink, EOMI, PERRLA. ABSENT: scleral icterus Ear exam: PRESENT: normal external ear exam Mouth exam: PRESENT: moist, tongue midline Neck exam: ABSENT: carotid bruit, JVD, lymphadenopathy, thyromegaly Respiratory exam: PRESENT: clear to auscultation antonio. ABSENT: rales, rhonchi, wheezes Cardiovascular exam: PRESENT: RRR. ABSENT: diastolic murmur, rubs, systolic murmur Pulses: PRESENT: normal dorsalis pedis pul Vascular exam: PRESENT: normal capillary refill GI/Abdominal exam: PRESENT: normal bowel sounds, soft. ABSENT: distended, guarding, mass, organolmegaly, rebound, tenderness Rectal exam: PRESENT: deferred Extremities exam: PRESENT: full ROM. ABSENT: calf tenderness, clubbing, pedal edema Neurological exam: PRESENT: alert, awake, oriented to person, oriented to place , oriented to time, oriented to situation, CN II-XII grossly intact. ABSENT: motor sensory deficit Psychiatric exam: PRESENT: appropriate affect, normal mood. ABSENT: homicidal ideation, suicidal ideation Skin exam: PRESENT: dry, intact, warm. ABSENT: cyanosis, rash Results Laboratory Results: 07/08/16 04:42 07/07/16 11:02 Troponin I < 0.012 07/08/16 04:42 07/06/16 23:25 MCV 88 fl (80-97) 07/08/16 04:42 MCH 28.8 pg (27.0-33.4) 07/08/16 04:42 MCHC 32.9 g/dL (32.0-36.0) 07/08/16 04:42 RDW 13.1 % (11.5-14.0) 07/08/16 04:42 Seg Neutrophils % 61.5 % (42-78) 07/06/16 23:25 Lymphocytes % 28.5 % (13-45) 07/06/16 23:25 Monocytes % 8.3 % (3-13) 07/06/16 23:25 Eosinophils % 1.0 % (0-6) 07/06/16 23:25 Basophils % 0.7 % (0-2) 07/06/16 23:25 Absolute Neutrophils 4.3 10^3/uL (1.7-8.2) 07/06/16 23:25 Absolute Lymphocytes 2.0 10^3/uL (0.5-4.7) 07/06/16 23:25 Absolute Monocytes 0.6 10^3/uL (0.1-1.4) 07/06/16 23:25 Absolute Eosinophils 0.1 10^3/uL (0.0-0.6) 07/06/16 23:25 Absolute Basophils 0.0 10^3/uL (0.0-0.2) 07/06/16 23:25 Chloride 106 mmol/L (98-107) 07/06/16 23:25 Carbon Dioxide 28 mmol/L (22-30) 07/06/16 23:25 Anion Gap 12 (5-19) 07/06/16 23:25 Est GFR ( Amer) > 60 (>60) 07/06/16 23:25 Est GFR (Non-Af Amer) 56 (>60) L 07/06/16 23:25 Glucose 152 mg/dL (75-110) H 07/06/16 23:25 Calcium 10.2 mg/dL (8.4-10.2) 07/06/16 23:25 Magnesium 2.0 mg/dL (1.6-2.3) 07/06/16 23:25 Total Bilirubin 0.6 mg/dL (0.2-1.3) 07/06/16 23:25 AST 48 U/L (14-36) H 07/06/16 23:25 ALT 26 U/L (9-52) 07/06/16 23:25 Alkaline Phosphatase 76 U/L (38-126) 07/06/16 23:25 Total Protein 7.9 g/dL (6.3-8.2) 07/06/16 23:25 Albumin 4.8 g/dL (3.5-5.0) 07/06/16 23:25 Triglycerides 92 mg/dL (<150) 07/08/16 04:42 Cholesterol 188.22 mg/dL (0-200) 07/08/16 04:42 LDL Cholesterol Direct 72 mg/dL (<100) 07/08/16 04:42 VLDL Cholesterol 18.0 mg/dL (10-31) 07/08/16 04:42 HDL Cholesterol 75 mg/dL (>40) 07/08/16 04:42 TSH 3.25 uIU/mL (0.47-4.68) 07/08/16 04:42 Free T4 1.74 ng/dL (0.78-2.19) 07/08/16 04:42 Urine Color YELLOW 07/08/16 06:33 Urine Appearance CLEAR 07/08/16 06:33 Urine pH 6.0 (5.0-9.0) 07/08/16 06:33 Ur Specific [place] 1.025 07/08/16 06:33 Urine Protein NEGATIVE mg/dL (NEGATIVE) 07/08/16 06:33 Urine Glucose (UA) NEGATIVE mg/dL (NEGATIVE) 07/08/16 06:33 Urine Ketones TRACE mg/dL (NEGATIVE) H 07/08/16 06:33 Urine Blood NEGATIVE (NEGATIVE) 07/08/16 06:33 Urine Nitrite NEGATIVE (NEGATIVE) 07/08/16 06:33 Ur Leukocyte Esterase NEGATIVE (NEGATIVE) 07/08/16 06:33 Urine WBC (Auto) 1 /HPF 07/08/16 06:33 Urine RBC (Auto) 1 /HPF 07/08/16 06:33 07/06/16 07/06/16 07/07/16 23:25 23:25 04:00 Creatine Kinase 178 H CK-MB (CK-2) 2.15 Troponin I < 0.012 < 0.012 NT-Pro-B Natriuret Pep 295 07/07/16 11:02 Creatine Kinase CK-MB (CK-2) Troponin I < 0.012 NT-Pro-B Natriuret Pep EKG Comments: SINUS RHYTHM [id number] NIKKI BASS 08-Jul-2016 06:48:50 : 1950 66 Years Female Race: White Dept: Inpatients Room: [facility] [place][note 3] Oper: HR 74 [place] 172 QRSD 94 QT 380 QTc 422 -- AXIS Impressions: Chest X-Ray 07/06/16 23:12 IMPRESSION: NO SIGNIFICANT RADIOGRAPHIC FINDING IN THE CHEST. Chest/Abdomen CTA 07/07/16 08:04 IMPRESSION: NO PULMONARY EMBOLI. NO THORACIC AORTIC DISSECTION. NO ACUTE INFILTRATES. NO PLEURAL EFFUSIONS. NO PNEUMOTHORAX. Plan Discharge Plan: Follow-up with cardiology as scheduled Time Spent: Greater than 30 Minutes
== END 2016-07-08 16:35 | disposition home or self-care (01) | DRG 310 ==
LOC: ER 22:58 → EH 07-07 06:56 → OBSVTOIN 07-07 08:08 → 3W 07-07 12:00
PROVIDERS: ADMIT Family Medicine; ATTEND Family Medicine
DX: I48.0 Paroxysmal atrial fibrillation (principal); I10 Essential (primary) hypertension; K21.9 Gastro-esophageal reflux disease without esophagitis; E03.9 Hypothyroidism, unspecified; J45.909 Unspecified asthma, uncomplicated; Z79.899 Other long term (current) drug therapy; Z90.710 Acquired absence of both cervix and uterus; Z98.51 Tubal ligation status; Z85.828 Personal history of other malignant neoplasm of skin; Z79.02 Long term (current) use of antithrombotics/antiplatelets
CPT/HCPCS: 36415; 71020; 71275; 78452; 80053; 80061; 81001; 82550; 82553; 83036; 83735; 83880; 84439; 84443; 84484; 85025; 85027; 85240; 85244; 85245; 85246; 85610; 85730; 93005; 93010; 93017; 93306; 96360; 96361; 99285; A9500; J0280; J1650; J2785; J3490; J7030; Q9969